=== PATIENT | male | born 1980 | race Caucasian/White ===

== ENCOUNTER 2021-10-31 13:58 | Emergency (ER) | payer MEDICAID ==
[~2021-10-31] VITALS: Ht 170.2 cm; Wt 90.7 kg
--- NOTE | 2021-10-31 17:00 | NUR ---
Patient to ER CHAIR to [facility] for evaluation.
--- NOTE | 2021-10-31 17:05 | NUR ---
PATIENT COMPLAINING OF BODY PAIN. DENIES ANY PAIN. AFEBRILE.
--- NOTE | 2021-10-31 17:17 | NUR ---
ER at bedside examining patient.
--- NOTE | 2021-10-31 17:27 | NUR ---
Patient given written and verbal discharge instructions and verbalizes understanding. ER MD discussed with patient the results and treatment provided. Patient in stable condition. ID arm band removed. NO RX given. Patient educated on pain management and to follow up with PMD. Pain Scale 0/10 Opportunity for questions provided and answered. Medication side effect fact sheet provided.
[2021-10-31] MEDS ORDERED: DIPHTH,PERTUSS(ACELL),TET VAC 0.5 ML VIAL (Tdap) I.M. ONE (17:30)
== END 2021-10-31 17:27 | disposition home or self-care (01) ==
LOC: SED 13:58
DX: S50.811A Abrasion of right forearm, initial encounter (principal); S70.311A Abrasion, right thigh, initial encounter; Z79.899 Other long term (current) drug therapy; Y04.8XXA Assault by other bodily force, initial encounter; Y93.89 Activity, other specified; Y92.89 Other specified places as the place of occurrence of the external cause; Y99.8 Other external cause status
CPT/HCPCS: 99281